=== PATIENT | male | born 1995 | race Caucasian/White ===

== ENCOUNTER 2024-01-02 23:27 | Emergency (ER) | payer OTHER ==
[2024-01-02 23:50] VITALS: BP 159/89; PULSE 87; RESP 18; TEMP 98.8; BMI 33.4
[2024-01-03] MEDS ORDERED: DIPHTH,PERTUSS(ACELL),TET 0.5 ML DISP.SYRIN IM ONE (00:40)
[2024-01-03] MEDS ORDERED: ACETAMINOPHEN 325 MG TABLET (FP) ONE (00:40)
[2024-01-03] MEDS: ACETAMINOPHEN 500 MG TABLET (FP) PO ONE (00:46)
[2024-01-03] MEDS: DIPHTH,PERTUSS(ACELL),TET 0.5 ML DISP.SYRIN IM ONE (00:47)
== END 2024-01-03 02:34 | disposition home or self-care (01) ==
LOC: JER 23:27
PROC: 0HQ1XZZ Repair Face Skin, External Approach (ICD-10-PCS; principal; 2024-01-02)
PROC: 3E0234Z Introduction of Serum, Toxoid and Vaccine into Muscle, Percutaneous Approach (ICD-10-PCS; 2024-01-02)
DX: S01.81XA Laceration without foreign body of other part of head, initial encounter (principal); W22.8XXA Striking against or struck by other objects, initial encounter; Y99.0 Civilian activity done for income or pay; Z23 Encounter for immunization
CPT/HCPCS: 70450-TC; 90715; 99284-25